=== PATIENT | female | born 1965 | race Caucasian/White ===

== ENCOUNTER 2022-12-28 10:37 | Outpatient (CLI) | payer OTHER | END 2022-12-28 10:38 | disposition home or self-care (01) | LOC: BICULT 10:37 | PROVIDERS: ATTEND Internal Medicine Gastroenterology | DX: K76.89 Other specified diseases of liver (principal); R10.13 Epigastric pain; R63.4 Abnormal weight loss; R19.5 Other fecal abnormalities | CPT/HCPCS: 76705 ==